=== PATIENT | male | born 1965 | race Caucasian/White ===

== ENCOUNTER → 2016-09-12 | Outpatient (REF) | payer BC | LOC: M LAB REF 16:13 | PROVIDERS: ATTEND Internal Medicine | DX: E78.1 Pure hyperglyceridemia (principal) ==

== ENCOUNTER 2020-09-19 10:36 | Emergency (ER) | payer BC ==
[~2020-09-19] VITALS: Ht 177.8 cm; Wt 90.7 kg
[2020-09-19 10:36] VITALS: BP 127/78
--- OUTSIDE RECORDS SUMMARY | 2020-09-19 10:41 | CCD | Continuity of Care Document ---
Author Author [facility] Vasquez Organization Unknown Address [address] [place] [id number] Phone Unavailable Care Team Providers Care Broach Grinder Name Role Phone Smith Elena JR, MD AUTM Unavailable Problems Description No Information Available Social History Type Date Description Comments Sex Unknown ETOH Use Occasionally consumes alcohol MA LT LIQUOR 2 DRINKS A MONTH Tobacco Use Start: Unknown Patient has never smoked Allergies, Adverse Reactions, Alerts Description No Known Drug Allergies Medications Description No Active Medications Medications Administered in Office Medication SIG Qnty Indications Ordering Provider Date Immunization Adminstration,1 Vaccine/Tox oid Injection Smith Elena MD 2018 Immunizations CPT Code Status Date Vaccine Lot # [id number] Given 08/06/2019 Influenza Vaccin e Quadrivalent Preser/Antibiotic Free Im Use [id number] Vital Signs Date Vital Result Comment 08/07/2020 9:00am BP Systolic 118 mmHg BP Diastolic 76 mmHg Heart Rate 72 /min Height 69.5 inches 5'9.50" Weight 201.00 lb BMI (Body Mass Index) 29.3 kg/m2 08/06/2019 11:43am BP Systolic 122 mmHg BP Diastolic 68 mmHg Heart Rate 78 /min Height 69.5 inches 5'9.50" Weight 208.00 lb BMI (Body Mass Index) 30.3 kg/m2 Results Test Acquired Date Facility Test Result H/L Range Note Complete Blood Count 2020 [facility] Rob[employer] Technician: [place] [address] [phone] WBC 6.9 x10*3/UL 4.1 - 10.9 RBC 5.52 x10*6/UL 4.20 - 6.30 Hemoglobin 15.9 g/dL 12.0 - 18.0 Hematocrit 45.1 % 37.0 - 51.0 MCV 81.7 fL 80.0 - 97.0 MCH 28.8 pg 26.0 - 32.0 MCHC 35.2 g/dL 31.0 - 38.0 RDW 12.7 % 11.6 - 13.7 PLT 291 x10*3/UL 140 - 440 MPV 7.6 FL Low 7.8 - 11.0 Lymph % 32.6 % 10.0 - 58.5 Mid % 7.3 % 1.7 - 9.3 Neut % 60.1 % 37.0 - 92.0 Lymph # 2.2 x10*3/UL 0.6 - 4.1 Mid # 0.6 x10*3/UL 0.1 - 0.6 Neut # 4.1 x10*3/UL 2.0 - 7.8 Comprehensive Chem Profile 2020 [facility], Robotics Technician: [place] [address] [phone] Glucose 82 mg/dL 74 - 99 1 BUN 14 mg/dL 7 - 18 Creatinine 1.4 mg/dL High 0.6 - 1.3 Sodium 144 mEq/L 136 - 145 Potassium 4.5 mEq/L 3.5 - 5.1 Chloride 106 mEq/L 98 - 107 Carbon Dioxide 28 mEq/L 21 - 32 Calcium 8.8 mg/dL 8.5 - 10.1 Alk. Phosphatase 68 mg/dL 46 - 116 Total Bilirubin 0.5 mg/dL 0.2 - 1.0 Ast (Sgot) 20 U/L 15 - 37 Alt (SGPT) 15 U/L 12 - 78 Albumin 4.1 g/dL 3.4 - 5.0 Total Protein 7.5 g/dL 6.4 - 8.2 A/G Ratio 1.21 CALC 1.00 - 1.90 GFR 53 mL/min Low >60 GFR >= 60 mL/min >60 2 Lipid Profile 2020 [facility] , Robotics Technician: [place] [address] [phone] Cholesterol 174 mg/dL 131 - 200 Triglycerides 390 mg/dL High 30 - 150 HDL Cholesterol 38 mg/dL 35 - 60 LDL (Calculated) 58 CALC 50 - 159 Laboratory test finding 2020 [facility] Robotics Technician: Dr Smith Elena [place], [place] [id number] [phone] PSA 0.30 ng/mL <4.00 3 1 100-125 mg/dL PRE-DIABET ES/FASTING >126 mg/dL DIABETES/FASTING 2 CHRONIC KIDNEY DISEASE STAGI NG PER NKF STAGE I & II GFR >= 60 NORMAL TO MILDLY DECREASED STAGE III GFR 30-59 MODERATELY DECREASED STAGE IV GFR 15-29 SEVERELY DECREASED STAGE V GFR <15 VERY LITTLE GFR LEFT ESRD GFR <15 ON INTERVENTION ANALYST 3 This assay was performed on the SERVICEINFINITYL using the B- Galactosidase/CPRG methodology and should not be compared interchangeably with other methods. The PSA should not be used alone as a screening test for the presence or absence of malignant disease. Procedures Description No Information Available Medical Devices Description No Information Available Encounters Description No Information Available Assessments Description No Information Available Plan of Treatment No Information Available Functional Status Description No Information Available Mental Status Description No Information Available Referrals Description No Information Available
--- OUTSIDE RECORDS SUMMARY | 2020-09-19 10:41 | CCD ---
Author Author [facility] Organization [facility] Address Unknown Phone Unavailable Care Team Providers Care Hogshead Head Matcher Name Role Phone Joi Elena MD Unavailable Unavailable Joi Elena MD Unavailable Unavailable Joi Elena MD Unavailable Unavailable Joi Elena MD Unavailable Unavailable Joi Elena MD Unavailable Unavailable Joi Elena MD Unavailable Unavailable Joi Elena MD Unavailable Unavailable Joi Elena MD Unavailable Unavailable Joi Elena MD Unavailable Unavailable Joi Elena MD Unavailable Unavailable Joi Elena MD Unavailable Unavailable Joi Elena MD Unavailable Unavailable Joi Elena MD Unavailable Unavailable Joi Elena MD Unavailable Unavailable Joi Elena MD Unavailable Unavailable Joi Elena MD Unavailable Unavailable Joi Elena MD Unavailable Unavailable Joi Elena MD Unavailable Unavailable Joi Elena MD Unavailable Unavailable Joi Elena MD Unavailable Unavailable Joi Elena MD Unavailable Unavailable Joi Elena MD Unavailable Unavailable Joi Elena MD Unavailable Unavailable Joi Elena MD Unavailable Unavailable Joi Elena MD Unavailable Unavailable Joi Elena MD Unavailable Unavailable Joi Elena MD Unavailable Unavailable Joi Elena MD Unavailable Unavailable Joi Elena MD Unavailable Unavailable Joi Elena MD Unavailable Unavailable Joi Elena MD Unavailable Unavailable Joi Elena MD Unavailable Unavailable Joi Elena MD Unavailable Unavailable Joi Elena MD Unavailable Unavailable Joi Elena MD Unavailable Unavailable Joi Elena MD Unavailable Unavailable Columbia, Joi Mtz MD Unavailable Unavailable Columbia, Joi Mtz MD Unavailable Unavailable Kassy, Joi Mtz MD Unavailable Unavailable Columbia, Joi Mtz MD Unavailable Unavailable Kassy, Joi Mtz MD Unavailable Unavailable Kassy, Joi Mtz MD Unavailable Unavailable Kassy, Joi Mtz MD Unavailable Unavailable Kassy, Joi Mtz MD Unavailable Unavailable KassyJoi MD Unavailable Unavailable KassyJoi MD Unavailable Unavailable ColumbiaJoi MD Unavailable Unavailable ColumbiaJoi MD Unavailable Unavailable Columbia, Joi Mtz MD Unavailable Unavailable Kassy, Joi Mtz MD Unavailable Unavailable Kassy, Joi Mtz MD Unavailable Unavailable KassyJoi MD Unavailable Unavailable Columbia, Joi Mtz MD Unavailable Unavailable KassyJoi MD Unavailable Unavailable ColumbiaJoi MD Unavailable Unavailable ColumbiaJoi MD Unavailable Unavailable ColumbiaJoi MD Unavailable Unavailable KassyJoi MD Unavailable Unavailable ColumbiaJoi MD Unavailable Unavailable KassyJoi MD Unavailable Unavailable ColumbiaJoi MD Unavailable Unavailable ColumbiaJoi MD Unavailable Unavailable KassyJoi MD Unavailable Unavailable KassyJoi MD Unavailable Unavailable KassyJoi MD Unavailable Unavailable KassyJoi MD Unavailable Unavailable ColumbiaJoi MD Unavailable Unavailable KassyJoi MD Unavailable Unavailable ColumbiaJoi MD Unavailable Unavailable KassyJoi MD Unavailable Unavailable ColumbiaJoi MD Unavailable Unavailable ColumbiaJoi MD Unavailable Unavailable ColumbiaJoi MD Unavailable Unavailable KassyJoi MD Unavailable Unavailable KassyJoi MD Unavailable Unavailable KassyJoi MD Unavailable Unavailable ColumbiaJoi MD Unavailable Unavailable KassyJoi MD Unavailable Unavailable ColumbiaJoi MD Unavailable Unavailable ColumbiaJoi MD Unavailable Unavailable KassyJoi MD Unavailable Unavailable ColumbiaJoi MD Unavailable Unavailable ColumbiaJoi MD Unavailable Unavailable ColumbiaJoi MD Unavailable Unavailable ColumbiaJoi MD Unavailable Unavailable KassyJoi MD Unavailable Unavailable Re-disclosure Warning The records that you are about to access may contain information from federally-assisted alcohol or drug abuse programs. If such information is present, then the following federally mandated warning applies: This information has been disclosed to you from records protected by federal confidentiality rules (42 CFR part 2). The federal rules prohibit you from making any further disclosure of this information unless further disclosure is expressly permitted by the written consent of the person to whom it pertains or as otherwise permitted by 42 CFR part 2. A general authorization for the release of medical or other information is NOT sufficient for this purpose. The Federal rules restrict any use of the information to criminally investigate or prosecute any alcohol or drug abuse patient.The records that you are about to access may contain highly sensitive health information, the redisclosure of which is protected by Article 27-F of the [facility] Public Health law. If you continue you may have access to information: Regarding HIV / AIDS; Provided by facilities licensed or operated by the [facility] Office of Mental Health; or Provided by the [facility] Office for People With Developmental Disabilities. If such information is present, then the following [facility] mandated warning applies: This information has been disclosed to you from confidential records which are protected by state law. State law prohibits you from making any further disclosure of this information without the specific written consent of the person to whom it pertains, or as otherwise permitted by law. Any unauthorized further disclosure in violation of state law may result in a fine or care home sentence or both. A general authorization for the release of medical or other information is NOT sufficient authorization for further disc losure. Family History Family Member Name Family Member Gender Family Member Status Date o f Status Description Data Source(s) Unknown Female Problem [facility] ([facility]) Encounters Encounter Providers Location Date Indications Data Source(s ) Outpatient Attender: Smith Clements 10/08/2019 08:00:00 AM EST [facility] ([facility] ) Immunizations Vaccine Date Status Description Data Source(s) Influenza, injectable, MDCK, preservative free, conard valent 08/06/2019 11:23:00 AM EST completed [facility]) Medications Medication Brand Name Start Date Product Form Dose Route Admi nistrative Instructions Pharmacy Instructions Status Indications Reaction Description Data Source(s) Immunization Adminstration,1 Vaccine/Toxoid 08/06/2019 12:00 :00 AM EST completed [facility] ([facility]) Medication administered onsite Insurance Providers Payer name Policy type / Coverage type Policy ID Covered alliance party ID Covered alliance party's relationship to urrutia Policy [place] Plan Information [employer] EMPL[employer]EE PRO[employer] [id number] SP [id number] [employer]CELL[employer] BCBS FEDERAL [id number] SP [id number] Federal BC/BS Commercial [phone] Self [phone] BC BS [place] FEDERAL B [id number] S [id number] BC/BS (Federal) Commercial Self EXCELLUS BCBS FEDERAL [id number] SP [id number] Results ID Date Data Source [id number] 08/12/2020 04:08:00 PM EST [facility] ([facility]) Name Value Range Interpretation Code Description Data Conchita rce(s) Supporting Document(s) Hemoglobin.gastrointestinal [Presence] in Stool by Imm unologic method Laboratory test result [facility] ID Date Data Source [id number] 2020 08:56:00 AM EST [facility] ([facility]) Name Value Range Interpretation Code Description Data Conchita rce(s) Supporting Document(s) Prostate specific Ag [Mass/volume] in Serum or Plasma 0.30 ng/mL [facility] This assay was performed on the Siemens Dimension EXL using the B- Galactosidase/CPRG methodology and should not be compared interchangeably with other methods. The PSA should not be used alone as a screening test for the presence or absence of malignant disease. ID Date Data Source [id number] 2020 08:56:00 AM EST [facility] ([facility]) Name Value Range Interpretation Code Description Data Conchita rce(s) Supporting Document(s) Triglyceride [Mass/volume] in Serum or Plasma 390 mg/dL 30-150 [facility] ([facility]) Cholesterol [Mass/volume] in Serum or Plasma 174 mg/dL 131-200 [facility] ([facility]) Cholesterol in HDL [Mass/volume] in Serum or Plasma 38 mg/dL 35-60 [facility] ([facility]) Cholesterol in LDL [Mass/volume] in Serum or Plasma by calcu lation 58 CALC 50-159 [facility] ([facility]) ID Date Data Source [id number] 2020 08:56:00 AM EST [facility] ([facility]) Name Value Range Interpretation Code Description Data Conchita rce(s) Supporting Document(s) Glucose [Mass/volume] in Serum or Plasma 82 mg/dL 74-99 [facility] ([facility]) 100-125 mg/dL PRE-DIABETES/FASTING >126 mg/dL DIABETES/FASTING Creatinine 1.4 mg/dL 0.6-1.3 [facility] ([facility]) Urea nitrogen [Mass/volume] in Serum or Plasma 14 mg/dL 7-18 [facility] ([facility]) Potassium [Moles/volume] in Serum or Plasma 4.5 meq/L 3.5-5.1 [facility] ([facility]) Sodium [Moles/volume] in Serum or Plasma 144 meq/L 136-145 [facility] ([facility]) Calcium [Mass/volume] in Serum or Plasma 8.8 mg/dL 8.5-10.1 [facility] ([facility]) Carbon dioxide, total [Moles/volume] in Serum or Plasma 28 meq/L 21 -32 [facility] ([facility]) Chloride [Moles/volume] in Serum or Plasma 106 meq/L 98-107 [facility] ([facility]) Alkaline phosphatase isoenzyme [Units/volume] in Serum or Pl asma 68 mg/dL 46-116 [facility] ([facility]) Aspartate aminotransferase [Enzymatic activity/volume] in Serum or Plasma 20 U/L 15-37 [facility] ([facility] ) Total Bilirubin 0.5 mg/dL 0.2-1.0 [facility] ([facility]) Albumin [Mass/volume] in Serum or Plasma 4.1 g/dL 3.4-5.0 [facility] ([facility]) Alanine aminotransferase [Enzymatic activity/volume] in Seru m or Plasma 15 U/L 12-78 [facility] ([facility]) A/G Ratio 1.21 CALC 1.00-1.90 [facility]) Proteinase 3 Ab [Units/volume] in Serum 7.5 g/dL 6.4-8.2 [facility] ([facility]) Glomerular filtration rate/1.73 sq M pre dicted among blacks [Volume Rate/Area] in Serum or Plasma by Creatinine-based formula (MDRD) Laboratory test result [facility] ([facility]) <content>CHRONIC KIDNEY DISEASE STAGING PER NKF</content>
<content></content>
<content>STAGE I & II GFR >= 60 NORMAL TO MILDLY DECREASED</content>
<content>STAGE III GFR 30-59 MODERATELY DECREASED</content>
<content>STAGE IV GFR 15-29 SEVERELY DECREASED</content>
<content>STAGE V GFR <15 VERY LITTLE GFR LEFT</content>
<content>ESRD GFR <15 ON SUPERINTENDENT RECREATION</content>
<content></content> Glomerular filtration rate/1.73 sq M pre dicted among non-blacks [Volume Rate/Area] in Serum or Plasma by Creatinine-based formula (MDRD) 53 mL/min [facility] ([facility]) ID Date Data Source [id number] 2020 08:56:00 AM EST [facility] ([facility]) Name Value Range Interpretation Code Description Data Conchita rce(s) Supporting Document(s) Leukocytes [#/volume] in Blood by Automated count 6.9 x10*3/UL 4.1-10 .9 [facility] ([facility]) Erythrocytes [#/volume] in Blood by Automated count 5.52 x10*6/UL 4.2 0-6.30 [facility] ([facility]) Hemoglobin [Mass/volume] in Blood 15.9 g/dL 12.0-18.0 [facility]) Hematocrit [Volume Fraction] of Blood by Automated count 45.1 % 3 7.0-51.0 [facility] ([facility]) MCV 81.7 fL 80.0-97.0 [facility] ([facility]) Erythrocyte distribution width [Ratio] by Automated count 12.7 % 11.6-13.7 [facility] ([facility]) MCHC 35.2 g/dL 31.0-38.0 [facility] ([facility]) MCH 28.8 pg 26.0-32.0 [facility] Lymph % 32.6 % 10.0-58.5 [facility]) Platelets [#/volume] in Blood by Automated count 291 x10*3/UL 140-440 [facility] ([facility]) MPV 7.6 FL 7.8-11.0 [facility]) Mid % 7.3 % 1.7-9.3 [facility]) Lymph # 2.2 x10*3/UL 0.6-4.1 [facility] ([facility]) Neut % 60.1 % 37.0-92.0 [facility]) Mid # 0.6 x10*3/UL 0.1-0.6 [facility] ([facility]) Neut # 4.1 x10*3/UL 2.0-7.8 [facility] ([facility]) ID Date Data Source [id number] 07/30/2019 07:37:00 AM EST [facility] ([facility] Name Value Range Interpretation Code Description Data Conchita rce(s) Supporting Document(s) Prostate specific Ag [Mass/volume] in Serum or Plasma 0.35 ng/mL [facility] ([facility]) This assay was performed on the Siemens Dimension EXL using the B- Galactosidase/CPRG methodology and should not be compared interchangeably with other methods. The PSA should not be used alone as a screening test for the presence or absence of malignant disease. ID Date Data Source [id number] 07/30/2019 07:36:00 AM EST [facility] ([facility] Name Value Range Interpretation Code Description Data Conchita rce(s) Supporting Document(s) Cholesterol [Mass/volume] in Serum or Plasma 173 mg/dL 131-200 [facility] ([facility]) Triglyceride [Mass/volume] in Serum or Plasma 252 mg/dL 30-150 [facility] ([facility]) Cholesterol in HDL [Mass/volume] in Serum or Plasma 38 mg/dL 35-60 [facility] ([facility]) Cholesterol in LDL [Mass/volume] in Serum or Plasma by calcu lation 85 CALC 50-159 [facility] ([facility]) ID Date Data Source [id number] 07/30/2019 07:36:00 AM EST [facility] ([facility]) Name Value Range Interpretation Code Description Data Conchita rce(s) Supporting Document(s) Glucose [Mass/volume] in Serum or Plasma 85 mg/dL 74-99 [facility] ([facility]) 100-125 mg/dL PRE-DIABETES/FASTING >126 mg/dL DIABETES/FASTING Urea nitrogen [Mass/volume] in Serum or Plasma 17 mg/dL 7-18 [facility] ([facility]) Creatinine 1.4 mg/dL 0.6-1.3 [facility] Sodium [Moles/volume] in Serum or Plasma 142 meq/L 136-145 [facility] ([facility]) Potassium [Moles/volume] in Serum or Plasma 4.1 meq/L 3.5-5.1 [facility] ([facility]) Chloride [Moles/volume] in Serum or Plasma 103 meq/L 98-107 [facility] ([facility]) Calcium [Mass/volume] in Serum or Plasma 9.0 mg/dL 8.5-10.1 [facility] ([facility]) Carbon dioxide, total [Moles/volume] in Serum or Plasma 30 meq/L 21 -32 [facility] ([facility]) Total Bilirubin 0.7 mg/dL 0.2-1.0 [facility] ([facility]) Alkaline phosphatase isoenzyme [Units/volume] in Serum or Pl asma 62 mg/dL 46-116 [facility] ([facility]) Alanine aminotransferase [Enzymatic activity/volume] in Seru m or Plasma 26 U/L 12-78 [facility] ([facility]) Aspartate aminotransferase [Enzymatic activity/volume] in Serum or Plasma 26 U/L 15-37 [facility] ([facility] ) Proteinase 3 Ab [Units/volume] in Serum 7.8 g/dL 6.4-8.2 [facility] ([facility]) Albumin [Mass/volume] in Serum or Plasma 4.2 g/dL 3.4-5.0 [facility] ([facility]) Glomerular filtration rate/1.73 sq M pre dicted among non-blacks [Volume Rate/Area] in Serum or Plasma by Creatinine-based formula (MDRD) 53 mL/min [facility] ([facility]) A/G Ratio 1.17 CALC 1.00-1.90 [facility] ([facility]) Glomerular filtration rate/1.73 sq M pre dicted among blacks [Volume Rate/Area] in Serum or Plasma by Creatinine-based formula (MDRD) >= 60 mL/min [facility] ([facility]) <content>CHRONIC KIDNEY DISEASE STAGING PER NKF</content>
<content></content>
<content>STAGE I & II GFR >= 60 NORMAL TO MILDLY DECREASED</content>
<content>STAGE III GFR 30-59 MODERATELY DECREASED</content>
<content>STAGE IV GFR 15-29 SEVERELY DECREASED</content>
<content>STAGE V GFR <15 VERY LITTLE GFR LEFT</content>
<content>ESRD GFR <15 ON SUPERINTENDENT RECREATION</content>
<content></content> ID Date Data Source [id number] 07/30/2019 07:36:00 AM EST [facility] ([facility]) Name Value Range Interpretation Code Description Data Conchita rce(s) Supporting Document(s) Leukocytes [#/volume] in Blood by Automated count 6.9 x10*3/UL 4.1-10 .9 [facility] ([facility] Erythrocytes [#/volume] in Blood by Automated count 5.57 x10*6/UL 4.2 0-6.30 [facility] ([facility]) Hemoglobin [Mass/volume] in Blood 16.0 g/dL 12.0-18.0 [facility] ([facility]) MCV 84.6 fL 80.0-97.0 [facility] ([facility]) Hematocrit [Volume Fraction] of Blood by Automated count 47.2 % 3 7.0-51.0 [facility] ([facility] MCH 28.8 pg 26.0-32.0 [facility] ([facility]) MCHC 34.0 g/dL 31.0-38.0 [facility] ([facility]) Erythrocyte distribution width [Ratio] by Automated count 12.9 % 11.6-13.7 [facility] ([facility]) Platelets [#/volume] in Blood by Automated count 219 x10*3/UL 140-440 [facility] ([facility]) MPV 8.3 FL 7.8-11.0 [facility]) Lymph % 27.4 % 10.0-58.5 [facility]) Mid % 7.3 % 1.7-9.3 [facility]) Lymph # 1.9 x10*3/UL 0.6-4.1 [facility] ([facility]) Neut % 65.3 % 37.0-92.0 [facility] Mid # 0.5 x10*3/UL 0.1-0.6 [facility] ([facility]) Neut # 4.5 x10*3/UL 2.0-7.8 [facility] ([facility]) Procedure Vital Signs ID Date Data Source UNK Name Value Range Interpretation Code Description Data Source(s) Body mass index (BMI) [Ratio] 29.3 kg/m2 29.3 k g/m2 [facility] ([facility]) Body weight 201.00 [lb_av] 201.00 [lb_av] [employer] ([facility]) Body height 69.5 [in_i] 69.5 [in_i] [facility] ([facility]) 5'9.50" Heart rate 72 /min 72 /min [facility] ([facility]) Diastolic blood pressure 76 mm[Hg] 76 mm[Hg] [facility] ([facility]) Systolic blood pressure 118 mm[Hg] 118 mm[Hg] [facility] ([facility]) Body mass index (BMI) [Ratio] 30.3 kg/m2 30.3 k g/m2 [facility] ([facility]) Body weight 208.00 [lb_av] 208.00 [lb_av] [employer] ([facility]) Body height 69.5 [in_i] 69.5 [in_i] [facility] ([facility]) 5'9.50" Heart rate 78 /min 78 /min [facility] ([facility]) Diastolic blood pressure 68 mm[Hg] 68 mm[Hg] [facility] ([facility]) Systolic blood pressure 122 mm[Hg] 122 mm[Hg] [facility] WHARTON ([facility])
--- OUTSIDE RECORDS SUMMARY | 2020-09-19 10:41 | CCD | Continuity of Care Document ---
Author Author Geoff Woodward Organization Unknown Address [address] [place] [phone] Phone Unavailable Care Team Providers Care Pewter Fabricator Name Role Phone Smith Elena JR, MD [...] CPT Code Status Date Vaccine Lot # [id number] Given 08/06/2019 Influenza Vaccin e Quadrivalent Preser/Antibiotic Free Im Use [id number] Vital Signs Date Vital Result Comment 08/06/2019 11:43am BP Systolic 122 mmHg BP Diastolic 68 mmHg Heart Rate 78 /min Height 69.5 inches 5'9.50" Weight 208.00 lb BMI (Body Mass Index) 30.3 kg/m2 01/08/2018 1:05pm BP Systolic 122 mmHg BP Diastolic 64 mmHg Heart Rate 62 /min Height 69.5 inches 5'9.50" Weight 200.00 lb BMI (Body Mass Index) 29.1 kg/m2 Results Test Acquired Date Facility Test Result H/L Range Note Laboratory test finding 2020 [facility] javier, laurel Fabric Designer: [place] [address] [phone] PSA <pending> Procedures Description No Information Available Medical Devices Description No Information Available Encounters Description No Information Available Assessments Description No Information Available Plan of Treatment Future Appointment(s):* 08/07/2020 9:00 am - Smith Elena MD at [facility] 08/06/2019 - Smith Elena MD* Z00.00 Encounter for general adult medical examination without abnormal findings * E78.1 Pure hyperglyceridemia * E66.09 Other obesity due to excess calories * Z68.30 Body mass index (BMI) 30.0-30.9, adult * Z23 Encounter for immunization * Z13.89 Encounter for screening for other disorder * All * New Medication:* No Active Medications - * Comments:* Flu shot given. The importance of colonoscopy discussed and refer for colonoscopy Functional Status Description No Information Available Mental Status Description No Information Available Referrals Description No Information Available
--- OUTSIDE RECORDS SUMMARY | 2020-09-19 10:41 | CCD | Continuity of Care Document ---
Author Author Geoff Elena MD Organization Unknown Address [address] [address] Phone [phone] Care Team Providers Care Practice Or Student Teacher Name Role Phone Smith Elena JR, MD [...] CPT Code Status Date Vaccine Lot # [id number] Given 08/06/2019 Influenza Vaccin e Quadrivalent Preser/Antibiotic Free Im Use [id number] Vital Signs Date Vital Result Comment 08/07/2020 [...] H/L Range Note Complete Blood Count 2020 [place] Hand Ironer slaurel Pin Machine Tender: [place] [address] [phone] WBC 6.9 x10*3/UL 4.1 - 10.9 RBC [...] 2.0 - 7.8 Comprehensive Chem Profile 2020 [facility], Pin Machine Tender: [place] [address] [phone] Glucose 82 mg/dL 74 - 99 1 [...] 60 mL/min >60 2 Lipid Profile 2020 [facility] , Pin Machine Tender: [place] [address] [phone] Cholesterol 174 mg/dL 131 - 200 Triglycerides 390 mg/dL High 30 - 150 HDL Cholesterol 38 mg/dL 35 - 60 LDL (Calculated) 58 CALC 50 - 159 Laboratory test finding 2020 [place] [employer]gronomy Research Manager laurel herrera Pin Machine Tender: Dr Smith Elena [place], [place] [id number] [phone] PSA 0.30 ng/mL <4.00 3 1 100-125 mg/dL PRE-DIABET ES/FASTING >126 mg/dL DIABETES/FASTING 2 CHRONIC KIDNEY DISEASE STAGI NG PER NKF STAGE I & II GFR >= 60 NORMAL TO MILDLY DECREASED STAGE III GFR 30-59 MODERATELY DECREASED STAGE IV GFR 15-29 SEVERELY DECREASED STAGE V GFR <15 VERY LITTLE GFR LEFT ESRD GFR <15 ON PUG MILL OPERATOR HELPER 3 This assay was performed on the Siemens [...]
--- OUTSIDE RECORDS SUMMARY | 2020-09-19 10:41 | CCD | Continuity of Care Document ---
Author Author Lab Geoff Vasquez Organization Unknown Address [address] [place] [phone] Phone Unavailable Care Team Providers Care Senior Interactive Producer Name Role Phone Smith Elena JR, MD [...] CPT Code Status Date Vaccine Lot # [id number] Given 08/06/2019 Influenza Vaccin e Quadrivalent Preser/Antibiotic Free Im Use [id number] Vital Signs Date Vital Result Comment 08/07/2020 [...] H/L Range Note Complete Blood Count 2020 [place] Guest Request Runner slaurel Brim Ironer Hand: [place] [address] [phone] WBC 6.9 x10*3/UL 4.1 - 10.9 RBC [...] 2.0 - 7.8 Comprehensive Chem Profile 2020 [facility], Brim Ironer Hand: [place] [address] [phone] Glucose 82 mg/dL 74 - 99 1 [...] 60 mL/min >60 2 Lipid Profile 2020 [facility] , Brim Ironer Hand: [place] [address] [phone] Cholesterol 174 mg/dL 131 - 200 Triglycerides 390 mg/dL High 30 - 150 HDL Cholesterol 38 mg/dL 35 - 60 LDL (Calculated) 58 CALC 50 - 159 Laboratory test finding 2020 [facility] Brim Ironer Hand: Dr Smith Elena [place], [place] [id number] [phone] PSA 0.30 ng/mL <4.00 3 1 100-125 mg/dL PRE-DIABET ES/FASTING >126 mg/dL DIABETES/FASTING 2 CHRONIC KIDNEY DISEASE STAGI NG PER NKF STAGE I & II GFR >= 60 NORMAL TO MILDLY DECREASED STAGE III GFR 30-59 MODERATELY DECREASED STAGE IV GFR 15-29 SEVERELY DECREASED STAGE V GFR <15 VERY LITTLE GFR LEFT ESRD GFR <15 ON VOICE STUDIES DIRECTOR 3 This assay was performed on the [employer]L using the B- Galactosidase/CPRG methodology and should not be compared interchangeably with other methods. The PSA should not be used alone as a screening test for the presence or absence of malignant disease. Procedures Description No Information Available Medical Devices Description No Information Available Encounters Description No Information Available Assessments Date Code Description Provider 08/07/2020 Z00.00 Encounter for genera l adult medical examination without abnormal findings Smith Elena MD 08/07/2020 E78.2 Mixed hyperlipidemia Smith Elena MD 08/07/2020 E66.3 Overweight Smith arriaza MD 08/07/2020 Z68.29 Body mass index [BMI] 29.0-29.9, adult Smith Elena MD 2020 Z00.00 Encounter for genera l adult medical examination without abnormal findings Jeferson Randall M.D. 2020 Z00.00 Encounter for genera l adult medical examination without abnormal findings Lab Schedule 2020 Z12.5 Encounter for screening for tom gnant neoplasm of prostate Jeferson Randall M.D. 2020 Z12.5 Encounter for screening for tom gnant neoplasm of prostate Lab Schedule 2020 E78.1 Pure hyperglyceridemia Jeferson Randall M.D. 2020 E78.1 Pure hyperglyceridemia Lab Sched ule Plan of Treatment Future Appointment(s):* 08/04/2021 7:50 am - Lab Schedule at [facility] * 08/09/2021 8:20 am - Smith Elena MD at [facility] 08/07/2020 - Smith Elena MD* Z00.00 Encounter for general adult medical examination without abnormal findings * E78.2 Mixed hyperlipidemia* Comments:* LDL at goal. * E66.3 Overweight * Z68.29 Body mass index [BMI] 29.0-29.9, adult * All * Comments:* FIT test to be done. Wants to hold off on Colonoscopy until COVID is over. Functional Status Description No Information Available Mental Status Description No Information Available Referrals Description No Information Available
--- OUTSIDE RECORDS SUMMARY | 2020-09-19 10:41 | CCD | Continuity of Care Document ---
Author Author Geoff Elena MD Organization Unknown Address [address] [address] Phone [phone] Care Team Providers Care Milk Collector Name Role Phone Smith Elena JR, MD [...] CPT Code Status Date Vaccine Lot # [id number] Given 08/06/2019 Influenza Vaccin e Quadrivalent Preser/Antibiotic Free Im Use [id number] Vital Signs Date Vital Result Comment 08/07/2020 [...] Result H/L Range Note Laboratory test finding 08/12/2020 [facility] [employer] Dough Mixer laurel herrera Otr Company Truck Driver: Dr Smith Elena [place], [place] [id number] [phone] Fecal Immunochemical Test NEGATIVE Negati ve Complete Blood Count 2020 [facility] Otr Company Truck Driver: [place] [address] [phone] WBC 6.9 x10*3/UL 4.1 - 10.9 RBC [...] 2.0 - 7.8 Comprehensive Chem Profile 2020 [facility] Otr Company Truck Driver: [place] [address] [phone] Glucose 82 mg/dL 74 - 99 1 [...] 60 mL/min >60 2 Lipid Profile 2020 [facility] Otr Company Truck Driver: [place] [address] [phone] Cholesterol 174 mg/dL 131 - 200 Triglycerides 390 mg/dL High 30 - 150 HDL Cholesterol 38 mg/dL 35 - 60 LDL (Calculated) 58 CALC 50 - 159 Laboratory test finding 2020 [facility] [employer] Dough Mixer laurel herrera [employer] Truck Driver: [place] [address] [phone] PSA 0.30 ng/mL <4.00 3 1 100-125 mg/dL PRE-DIABET ES/FASTING >126 mg/dL DIABETES/FASTING 2 CHRONIC KIDNEY DISEASE STAGI NG PER NKF STAGE I & II GFR >= 60 NORMAL TO MILDLY DECREASED STAGE III GFR 30-59 MODERATELY DECREASED STAGE IV GFR 15-29 SEVERELY DECREASED STAGE V GFR <15 VERY LITTLE GFR LEFT ESRD GFR <15 ON CORRESPONDENCE CLERK 3 This assay was performed on the [employer] EXL using the B- Galactosidase/CPRG methodology and should not be compared interchangeably with other methods. The PSA should not be used alone as a screening test for the presence or absence of malignant disease. Procedures Description No Information Available Medical Devices Description No Information Available Encounters Type Date Location Provider Dx Diagnosis Office Visit 08/07/2020 9:00a [facility] Smith Elena MD Z00.00 Encntr for general adult medical exam w/ o abnormal findings E78.2 Mixed hyperlipidemia E66.3 Overweight Z13.89 Encounter for screening for other disorder Z68.29 Body mass index [BMI] 29.0-2 9.9, adult Assessments Date Code Description Provider 08/07/2020 Z00.00 Encounter for genera l adult medical examination without abnormal findings Smtih Elena MD 08/07/2020 E78.2 Mixed hyperlipidemia Smith Elena MD 08/07/2020 E66.3 Overweight Smith arriaza MD 08/07/2020 Z13.89 Encounter for screening for othe r disorder Smith Elena MD 08/07/2020 Z68.29 Body mass index [BMI] [...] 08/04/2021 7:50 am - Lab Schedule at [facility] * 08/09/2021 8:20 am - Smith Elena MD at [facility] 08/07/2020 - Smith Elena MD* Z00.00 Encounter for general adult medical examination without abnormal findings * E78.2 Mixed hyperlipidemia* Comments:* LDL at goal. * E66.3 Overweight * Z13.89 Encounter for screening for other disorder * Z68.29 Body mass index [BMI] 29.0-29.9, adult * All * Comments:* FIT test to be done. Wants to hold off on Colonoscopy until COVID is over. Functional Status Description No Information Available Mental Status Description No Information Available Referrals Description No Information Available
--- OUTSIDE RECORDS SUMMARY | 2020-09-19 10:41 | CCD | Continuity of Care Document ---
Author Author Geoff Woodward Organization Unknown Address [address] [place] [phone] Phone Unavailable Care Team Providers Care Tobacco Classer Name Role Phone Smith Elena JR, MD [...] CPT Code Status Date Vaccine Lot # [id number] Given 08/06/2019 Influenza Vaccin e Quadrivalent Preser/Antibiotic Free Im Use [id number] Vital Signs Date Vital Result Comment 08/07/2020 [...] H/L Range Note Laboratory test finding 08/12/2020 [employer] Community Relations Coordinator laurel herrera Racing Secretary And Handicapper: [place] [address] [phone] Fecal Immunochemical Test NEGATIVE Negati ve Complete Blood Count 2020 [facility] [employer] [facility] Racing Secretary And Handicapper: [place] [address] [phone] WBC 6.9 x10*3/UL 4.1 - 10.9 RBC [...] 2.0 - 7.8 Comprehensive Chem Profile 2020 [facility], Racing Secretary And Handicapper: [place] [address] [phone] Glucose 82 mg/dL 74 - 99 1 [...] 60 mL/min >60 2 Lipid Profile 2020 [facility] , Racing Secretary And Handicapper: [place] [address] [phone] Cholesterol 174 mg/dL 131 - 200 Triglycerides 390 mg/dL High 30 - 150 HDL Cholesterol 38 mg/dL 35 - 60 LDL (Calculated) 58 CALC 50 - 159 Laboratory test finding 2020 [employer] Community Relations Coordinator laurel herrera Racing Secretary And Handicapper: Dr Smith Elena [place], [place] [id number] [phone] PSA 0.30 ng/mL <4.00 3 1 100-125 mg/dL PRE-DIABET ES/FASTING >126 mg/dL DIABETES/FASTING 2 CHRONIC KIDNEY DISEASE STAGI NG PER NKF STAGE I & II GFR >= 60 NORMAL TO MILDLY DECREASED STAGE III GFR 30-59 MODERATELY DECREASED STAGE IV GFR 15-29 SEVERELY DECREASED STAGE V GFR <15 VERY LITTLE GFR LEFT ESRD GFR <15 ON ANIMAL CARE WORKER 3 This assay was performed on the [employer] EXL using the B- Galactosidase/CPRG methodology and should not be compared interchangeably with other methods. The PSA should not be used alone as a screening test for the presence or absence of malignant disease. Procedures Description No Information Available Medical Devices Description No Information Available Encounters Type Date Location Provider Dx Diagnosis Office Visit 08/07/2020 9:00a [facility] Smith Elena MD Z00.00 Encntr for general adult medical exam w/ o abnormal findings E78.2 Mixed hyperlipidemia E66.3 Overweight Z13.89 Encounter for screening for other disorder Z68.29 Body mass index [BMI] 29.0-2 9.9, adult Assessments Date Code Description Provider 08/12/2020 Z12.12 Encounter for screening for tom gnant neoplasm of rectum Smith Elena MD 08/12/2020 Z12.12 Encounter for screening for tom gnant neoplasm of rectum Lab Schedule 08/07/2020 Z00.00 Encounter for genera l adult [...] 08/04/2021 7:50 am - Lab Schedule at [facility] * 08/09/2021 8:20 am - Smith Elena MD at [facility] 08/07/2020 - Smith Elena MD* [...]
--- OUTSIDE RECORDS SUMMARY | 2020-09-19 10:41 | CCD | Continuity of Care Document ---
Author Author Lab Geoff Vasquez Organization Unknown Address [address] [place] [phone] Phone Unavailable Care Team Providers Care Antisqueak Worker Name Role Phone Smith Elena JR, MD [...] CPT Code Status Date Vaccine Lot # [id number] Given 08/06/2019 Influenza Vaccin e Quadrivalent Preser/Antibiotic Free Im Use [id number] Vital Signs Date Vital Result Comment 08/07/2020 [...] H/L Range Note Complete Blood Count 2020 [facility] [employer] Instructor slaurel Recreation Therapist: [place] [address] [phone] WBC 6.9 x10*3/UL 4.1 - 10.9 RBC [...] 2.0 - 7.8 Comprehensive Chem Profile 2020 [facility], Recreation Therapist: [place] [address] [phone] Glucose 82 mg/dL 74 - 99 1 [...] 60 mL/min >60 2 Lipid Profile 2020 [facility] , Recreation Therapist: [place] [address] [phone] Cholesterol 174 mg/dL 131 - 200 Triglycerides 390 mg/dL High 30 - 150 HDL Cholesterol 38 mg/dL 35 - 60 LDL (Calculated) 58 CALC 50 - 159 Laboratory test finding 2020 [facility] Recreation Therapist: Dr Smith Elena [place], [place] [id number] [phone] PSA 0.30 ng/mL <4.00 3 1 100-125 mg/dL PRE-DIABET ES/FASTING >126 mg/dL DIABETES/FASTING 2 CHRONIC KIDNEY DISEASE STAGI NG PER NKF STAGE I & II GFR >= 60 NORMAL TO MILDLY DECREASED STAGE III GFR 30-59 MODERATELY DECREASED STAGE IV GFR 15-29 SEVERELY DECREASED STAGE V GFR <15 VERY LITTLE GFR LEFT ESRD GFR <15 ON COMPUTER PROGRAMMER 3 This assay was performed on the [employer] using the B- Galactosidase/CPRG methodology and should [...] 08/04/2021 7:50 am - Lab Schedule at [facility] * 08/09/2021 8:20 am - Smith Elena MD at [facility] 08/07/2020 - Smith Elena MD* [...]
--- OUTSIDE RECORDS SUMMARY | 2020-09-19 11:12 | CCD ---
Author Author [facility] Organization [facility] Address Unknown Phone Unavailable Care Team Providers Care Nurse Prn Name Role Phone Joi Elena MD Unavailable [...] Unavailable Unavailable Joi Elena MD Unavailable Unavailable KassyJoi MD Unavailable Unavailable HuntingtonJoi MD Unavailable Unavailable HuntingtonJoi MD Unavailable Unavailable KassyJoi MD Unavailable Unavailable KassyJoi MD Unavailable Unavailable HuntingtonJoi MD Unavailable Unavailable HuntingtonJoi MD Unavailable Unavailable KassyJoi MD Unavailable Unavailable KsasyJoi MD Unavailable Unavailable KassyJoi MD Unavailable Unavailable HuntingtonJoi MD Unavailable Unavailable HuntingtonJoi MD Unavailable Unavailable KassyJoi MD Unavailable Unavailable HuntingtonJoi MD Unavailable Unavailable KassyJoi MD Unavailable Unavailable HuntingtonJoi MD Unavailable Unavailable KassyJoi MD Unavailable Unavailable HuntingtonJoi MD Unavailable Unavailable KassyJoi MD Unavailable Unavailable KassyJoi MD Unavailable Unavailable KassyJoi MD Unavailable Unavailable HuntingtonJoi MD Unavailable Unavailable KassyJoi MD Unavailable Unavailable KassyJoi MD Unavailable Unavailable HuntingtonJoi jordan MD Unavailable Unavailable KassyJoi MD Unavailable Unavailable KassyJoi jordan MD Unavailable Unavailable KassyJoi jordan MD Unavailable Unavailable HuntingtonJoi jordan MD Unavailable Unavailable HuntingtonJoi MD Unavailable Unavailable HuntingtonJoi MD Unavailable Unavailable KassyJoi jordan MD Unavailable Unavailable KassyJoi MD Unavailable Unavailable HuntingtonJoi jordan MD Unavailable Unavailable KassyJoi jordan MD Unavailable Unavailable HuntingtonJoi jordan MD Unavailable Unavailable HuntingtonJoi jordan MD Unavailable Unavailable KassyJoi jordan MD Unavailable Unavailable KassyJoi jordan MD Unavailable Unavailable HuntingtonJoi jordan MD Unavailable Unavailable KassyJoi jordan MD Unavailable Unavailable HuntingtonJoi jordan MD Unavailable Unavailable KassyJoi jordan MD Unavailable Unavailable HuntingtonJoi jordan MD Unavailable Unavailable HuntingtonJoi MD Unavailable Unavailable HuntingtonJoi MD Unavailable Unavailable KassyJoi MD Unavailable Unavailable HuntingtonJoi MD Unavailable Unavailable KassyJoi MD Unavailable Unavailable HuntingtonJoi MD Unavailable Unavailable HuntingtonJoi jordan MD Unavailable Unavailable KassyJoi jordan MD Unavailable Unavailable HuntingtonJoi MD Unavailable Unavailable Re-disclosure Warning The records [...] is protected by Article 27-F of the [facility] Public Health law. If you continue you may have access to information: Regarding HIV / AIDS; Provided by facilities licensed or operated by the [facility] Office of Mental Health; or Provided by the [facility] Office for People With Developmental Disabilities. If such information is present, then the following [facility] mandated warning applies: This information has [...] law may result in a fine or senior care sentence or both. A general authorization for [...] Smith Clements 10/08/2019 08:00:00 AM EST [facility] ([facility] ) Immunizations Vaccine Date Status Description Data Source(s) Influenza, injectable, MDCK, preservative free, conrad valent 08/06/2019 11:23:00 AM EST completed [facility]) Medications Medication Brand Name Start Date Product Form Dose Route Admi nistrative Instructions Pharmacy Instructions Status Indications Reaction Description Data Source(s) Immunization Adminstration,1 Vaccine/Toxoid 08/06/2019 12:00 :00 AM EST completed [facility] ([facility]) Medication administered onsite Insurance Providers Payer name Policy type / Coverage type Policy ID Covered constitution party ID Covered constitution party's relationship to urrutia Policy Urrutia Plan Information [facility] EMPLOYEE PROGRAM [id number] SP [id number] [facility] [id number] SP [id number] [facility] BC/BS Commercial [phone] Self [phone] BC BS [place] [employer] B [id number] S [id number] BC/BS ([facility]) Commercial Self [employer] [id number] SP [id number] Results ID Date Data Source [id number] 08/12/2020 04:08:00 PM EST [facility] ([facility]) Name Value Range Interpretation Code Description Data Conchita rce(s) Supporting Document(s) Hemoglobin.gastrointestinal [Presence] in Stool by Imm unologic method Laboratory test result [facility] ([facility] ) ID Date Data Source [id number] 2020 08:56:00 AM EST [facility] ([facility]) Name Value Range Interpretation Code Description Data Conchita rce(s) Supporting Document(s) Prostate specific Ag [Mass/volume] in Serum or Plasma 0.30 ng/mL [facility] ([facility]) This assay was performed on the Siemens Dimension EXL using the B- Galactosidase/CPRG methodology and should not be compared interchangeably with other methods. The PSA should not be used alone as a screening test for the presence or absence of malignant disease. ID Date Data Source [id number] 2020 08:56:00 AM EST [facility] ([facility]) Name Value Range Interpretation Code Description Data Conchita rce(s) Supporting Document(s) Triglyceride [Mass/volume] in Serum or Plasma 390 mg/dL 30-150 [facility] ([facility]) Cholesterol [Mass/volume] in Serum or Plasma 174 mg/dL 131-200 [facility] ([facility]) Cholesterol in HDL [Mass/volume] in Serum or Plasma 38 mg/dL 35-60 [facility] ([facility]) Cholesterol in LDL [Mass/volume] in Serum or Plasma by calcu lation 58 CALC 50-159 [facility] ([facility]) ID Date Data Source [id number] 2020 08:56:00 AM EST [facility] ([facility]) Name Value Range Interpretation Code Description Data Conchita rce(s) Supporting Document(s) Glucose [Mass/volume] in Serum or Plasma 82 mg/dL 74-99 [facility] ([facility]) 100-125 mg/dL PRE-DIABETES/FASTING >126 mg/dL DIABETES/FASTING Creatinine 1.4 mg/dL 0.6-1.3 [facility] ([facility]) Urea nitrogen [Mass/volume] in Serum or Plasma 14 mg/dL 7-18 [facility] ([facility]) Potassium [Moles/volume] in Serum or Plasma 4.5 meq/L 3.5-5.1 [facility] ([facility]) Sodium [Moles/volume] in Serum or Plasma 144 meq/L 136-145 [facility] ([facility]) Calcium [Mass/volume] in Serum or Plasma 8.8 mg/dL 8.5-10.1 [facility] ([facility]) Carbon dioxide, total [Moles/volume] in Serum or Plasma 28 meq/L 21 -32 [facility] ([facility]) Chloride [Moles/volume] in Serum or Plasma 106 meq/L 98-107 [facility] ([facility]) Alkaline phosphatase isoenzyme [Units/volume] in Serum or Pl asma 68 mg/dL 46-116 [facility] ([facility]) Aspartate aminotransferase [Enzymatic activity/volume] in Serum or Plasma 20 U/L 15-37 [facility] ([facility] ) Total Bilirubin 0.5 mg/dL 0.2-1.0 [facility] ([facility]) Albumin [Mass/volume] in Serum or Plasma 4.1 g/dL 3.4-5.0 [facility] ([facility]) Alanine aminotransferase [Enzymatic activity/volume] in Seru m or Plasma 15 U/L 12-78 [facility] ([facility]) A/G Ratio 1.21 CALC 1.00-1.90 [facility]) Proteinase 3 Ab [Units/volume] in Serum 7.5 g/dL 6.4-8.2 [facility] Glomerular filtration rate/1.73 sq M pre dicted among blacks [Volume Rate/Area] in Serum or Plasma by Creatinine-based formula (MDRD) Laboratory test result [facility]) <content>CHRONIC KIDNEY DISEASE STAGING PER NKF</content>
<content></content>
<content>STAGE I & II GFR >= 60 NORMAL TO MILDLY DECREASED</content>
<content>STAGE III GFR 30-59 MODERATELY DECREASED</content>
<content>STAGE IV GFR 15-29 SEVERELY DECREASED</content>
<content>STAGE V GFR <15 VERY LITTLE GFR LEFT</content>
<content>ESRD GFR <15 ON FUR SORTER</content>
<content></content> Glomerular filtration rate/1.73 sq M pre dicted among non-blacks [Volume Rate/Area] in Serum or Plasma by Creatinine-based formula (MDRD) 53 mL/min [facility]) ID Date Data Source [id number] 2020 08:56:00 AM EST [facility] ([facility]) Name Value Range Interpretation Code Description Data Conchita rce(s) Supporting Document(s) Leukocytes [#/volume] in Blood by Automated count 6.9 x10*3/UL 4.1-10 .9 [facility] Erythrocytes [#/volume] in Blood by Automated count 5.52 x10*6/UL 4.2 0-6.30 [facility] ([facility]) Hemoglobin [Mass/volume] in Blood 15.9 g/dL 12.0-18.0 [facility] Hematocrit [Volume Fraction] of Blood by Automated count 45.1 % 3 7.0-51.0 [facility] ([facility]) MCV 81.7 fL 80.0-97.0 [facility] ([facility]) Erythrocyte distribution width [Ratio] by Automated count 12.7 % 11.6-13.7 [facility] ([facility]) MCHC 35.2 g/dL 31.0-38.0 [facility] ([facility]) MCH 28.8 pg 26.0-32.0 [facility]) Lymph % 32.6 % 10.0-58.5 [facility]) Platelets [#/volume] in Blood by Automated count 291 x10*3/UL 140-440 [facility] ([facility]) MPV 7.6 FL 7.8-11.0 [facility]) Mid % 7.3 % 1.7-9.3 [facility]) Lymph # 2.2 x10*3/UL 0.6-4.1 [facility] ([facility]) Neut % 60.1 % 37.0-92.0 [facility] Mid # 0.6 x10*3/UL 0.1-0.6 [facility] ([facility]) Neut # 4.1 x10*3/UL 2.0-7.8 [facility] ID Date Data Source [id number] 07/30/2019 07:37:00 AM EST [facility] ([facility] Name Value Range Interpretation Code Description Data Conchita rce(s) Supporting Document(s) Prostate specific Ag [Mass/volume] in Serum or Plasma 0.35 ng/mL [facility] ([facility]) This assay was performed on the Siemens Dimension EXL using the B- Galactosidase/CPRG methodology and should not be compared interchangeably with other methods. The PSA should not be used alone as a screening test for the presence or absence of malignant disease. ID Date Data Source [id number] 07/30/2019 07:36:00 AM EST [facility] ([facility] Name Value Range Interpretation Code Description Data Conchita rce(s) Supporting Document(s) Cholesterol [Mass/volume] in Serum or Plasma 173 mg/dL 131-200 [facility] Triglyceride [Mass/volume] in Serum or Plasma 252 mg/dL 30-150 [facility] Cholesterol in HDL [Mass/volume] in Serum or Plasma 38 mg/dL 35-60 [facility] ([facility]) Cholesterol in LDL [Mass/volume] in Serum or Plasma by calcu lation 85 CALC 50-159 [facility] ([facility]) ID Date Data Source [id number] 07/30/2019 07:36:00 AM EST [facility] ([facility]) Name Value Range Interpretation Code Description Data Conchita rce(s) Supporting Document(s) Glucose [Mass/volume] in Serum or Plasma 85 mg/dL 74-99 [facility] ([facility]) 100-125 mg/dL PRE-DIABETES/FASTING >126 mg/dL DIABETES/FASTING Urea nitrogen [Mass/volume] in Serum or Plasma 17 mg/dL 7-18 [facility] ([facility]) Creatinine 1.4 mg/dL 0.6-1.3 [facility] Sodium [Moles/volume] in Serum or Plasma 142 meq/L 136-145 [facility] ([facility]) Potassium [Moles/volume] in Serum or Plasma 4.1 meq/L 3.5-5.1 [facility] ([facility]) Chloride [Moles/volume] in Serum or Plasma 103 meq/L 98-107 [facility] ([facility]) Calcium [Mass/volume] in Serum or Plasma 9.0 mg/dL 8.5-10.1 [facility] ([facility]) Carbon dioxide, total [Moles/volume] in Serum or Plasma 30 meq/L 21 -32 [facility] ([facility]) Total Bilirubin 0.7 mg/dL 0.2-1.0 [facility] ([facility]) Alkaline phosphatase isoenzyme [Units/volume] in Serum or Pl asma 62 mg/dL 46-116 [facility] ([facility]) Alanine aminotransferase [Enzymatic activity/volume] in Seru m or Plasma 26 U/L 12-78 [facility] ([facility]) Aspartate aminotransferase [Enzymatic activity/volume] in Serum or Plasma 26 U/L 15-37 [facility] ([facility] ) Proteinase 3 Ab [Units/volume] in Serum 7.8 g/dL 6.4-8.2 [facility] ([facility]) Albumin [Mass/volume] in Serum or Plasma 4.2 g/dL 3.4-5.0 [facility] ([facility]) Glomerular filtration rate/1.73 sq M pre dicted among non-blacks [Volume Rate/Area] in Serum or Plasma by Creatinine-based formula (MDRD) 53 mL/min [facility] A/G Ratio 1.17 CALC 1.00-1.90 [facility] ([facility]) Glomerular filtration rate/1.73 sq M pre dicted among blacks [Volume Rate/Area] in Serum or Plasma by Creatinine-based formula (MDRD) >= 60 mL/min [facility]) <content>CHRONIC KIDNEY DISEASE STAGING PER NKF</content>
<content></content>
<content>STAGE I & II GFR >= 60 NORMAL TO MILDLY DECREASED</content>
<content>STAGE III GFR 30-59 MODERATELY DECREASED</content>
<content>STAGE IV GFR 15-29 SEVERELY DECREASED</content>
<content>STAGE V GFR <15 VERY LITTLE GFR LEFT</content>
<content>ESRD GFR <15 ON FUR SORTER</content>
<content></content> ID Date Data Source [id number] 07/30/2019 07:36:00 AM EST [facility] ([facility]) Name Value Range Interpretation Code Description Data Conchita rce(s) Supporting Document(s) Leukocytes [#/volume] in Blood by Automated count 6.9 x10*3/UL 4.1-10 .9 [facility] Erythrocytes [#/volume] in Blood by Automated count 5.57 x10*6/UL 4.2 0-6.30 [facility] Hemoglobin [Mass/volume] in Blood 16.0 g/dL 12.0-18.0 [facility] MCV 84.6 fL 80.0-97.0 [facility] ([facility]) Hematocrit [Volume Fraction] of Blood by Automated count 47.2 % 3 7.0-51.0 [facility] ([facility]) MCH 28.8 pg 26.0-32.0 [facility] MCHC 34.0 g/dL 31.0-38.0 [facility]) Erythrocyte distribution width [Ratio] by Automated count 12.9 % 11.6-13.7 [facility] ([facility]) Platelets [#/volume] in Blood by Automated count 219 x10*3/UL 140-440 [facility] ([facility]) MPV 8.3 FL 7.8-11.0 [facility] Lymph % 27.4 % 10.0-58.5 [facility] Mid % 7.3 % 1.7-9.3 [facility]) Lymph # 1.9 x10*3/UL 0.6-4.1 [facility] ([facility]) Neut % 65.3 % 37.0-92.0 [facility] Mid # 0.5 x10*3/UL 0.1-0.6 [facility] ([facility]) Neut # 4.5 x10*3/UL 2.0-7.8 [facility] ([facility]) Procedure Vital Signs ID Date Data Source UNK Name Value Range Interpretation Code Description Data Source(s) Body mass index (BMI) [Ratio] 29.3 kg/m2 29.3 k g/m2 [facility] ([facility]) Body weight 201.00 [lb_av] 201.00 [lb_av] MEDEN T ([facility]) Body height 69.5 [in_i] 69.5 [in_i] [facility] ([facility]) 5'9.50" Heart rate 72 /min 72 /min [facility] ([facility]) Diastolic blood pressure 76 mm[Hg] 76 mm[Hg] [facility] ([facility]) Systolic blood pressure 118 mm[Hg] 118 mm[Hg] M EDENT ([facility]) Body mass index (BMI) [Ratio] 30.3 kg/m2 30.3 k g/m2 [facility] ([facility]) Body weight 208.00 [lb_av] 208.00 [lb_av] BROOKLYNN T ([facility]) Body height 69.5 [in_i] 69.5 [in_i] ISA ([facility]) 5'9.50" Heart rate 78 /min 78 /min [facility] ([facility]) Diastolic blood pressure 68 mm[Hg] 68 mm[Hg] ISA ([facility]) Systolic blood pressure 122 mm[Hg] 122 mm[Hg] Javier WHARTON ([facility])
--- NOTE | 2020-09-19 11:28 | REP ---
INDICATION: fall, right elbow COMPARISON: None. TECHNIQUE: Four views right elbow. FINDINGS: Possible avulsion fracture of the coronoid process of ulna. No acute fracture or dislocation is visualized. A joint effusion is noted. Oval calcific density along the each humeral condyle likely represent tendinous calcifications. IMPRESSION: Calcific density adjacent to the coronoid process may represent an avulsion fracture. No other evidence of acute fracture or dislocation. Joint effusion. <Electronically signed by Presley Johnson > 09/19/20 1122
== END 2020-09-19 12:00 | disposition home or self-care (01) ==
LOC: M ED 10:36
DX: S82.391A Other fracture of lower end of right tibia, initial encounter for closed fracture (principal); W18.39XA Other fall on same level, initial encounter; Y92.018 Other place in single-family (private) house as the place of occurrence of the external cause

== ENCOUNTER → 2021-12-01 | Outpatient (CLI) | payer BC | LOC: M LABSMTC 10:14 | PROVIDERS: ATTEND Anesthesiology | DX: Z11.52 Encounter for screening for COVID-19 (principal); Z20.822 Contact with and (suspected) exposure to COVID-19 ==

== ENCOUNTER 2021-12-06 08:08 | Day surgery (SDC) | payer BC ==
[~2021-12-06] VITALS: Ht 177.8 cm; Wt 92.4 kg
[~2021-12-06 08:08] MED LIST: LIDOCAINE 2% 100MG/5ML SDV (FOR ANES.) As Ordered ONE; NS 1,000 ML IV ONE; propofoL 200 MG/20 ML VIAL As Ordered ONE
[2021-12-06 10:04] VITALS: BP 115/72
== END 2021-12-06 10:20 | disposition home or self-care (01) ==
LOC: M OPP 08:08
PROVIDERS: ATTEND Internal Medicine Gastroenterology
DX: Z12.11 Encounter for screening for malignant neoplasm of colon (principal); K63.5 Polyp of colon; K64.8 Other hemorrhoids

== ENCOUNTER → 2022-08-04 | Outpatient (REF) | payer BC ==
[2022-08-05 08:09] LABS: LDL DIRECT 77 mg/dL (0-99)
== END ==
LOC: M LAB REF 12:50
PROVIDERS: ATTEND Internal Medicine
DX: E78.2 Mixed hyperlipidemia (principal)

== ENCOUNTER → 2022-08-10 | Outpatient (CLI) | payer BC | LOC: M WUC 11:19 | PROVIDERS: ATTEND Internal Medicine | DX: R06.02 Shortness of breath (principal) ==

== ENCOUNTER → 2022-10-05 | Outpatient (REF) | payer BC | LOC: M SMT 14:06 | PROVIDERS: ATTEND Urology | DX: Z30.2 Encounter for sterilization (principal) ==

== ENCOUNTER → 2023-02-17 | Outpatient (REF) | payer BC ==
[2023-02-17 12:27] LABS: SEMEN APPEARANCE OPAQUE (OPAQUE); SEMEN VISCOSITY LIQUID (LIQUID); SEMEN VOLUME 3.4 ml (2.0-5.0); SEMEN pH 8.5 (7.0-8.0)
[2023-02-17 12:28] LABS: WBC CONCENTRATION >1 M/ml (<=1 M/ml)
== END ==
LOC: M SMT 11:35
PROVIDERS: ATTEND Urology
DX: Z30.2 Encounter for sterilization (principal)

== ENCOUNTER 2023-11-09 04:42 | Emergency (ER) | payer BC ==
[~2023-11-09] VITALS: Ht 177.8 cm; Wt 93.6 kg
[2023-11-09 05:30] LABS: APPEARANCE, URINE HAZY (CLEAR); BACTERIA, URINE AUTO NEGATIVE (NEGATIVE); BILIRUBIN, URINE AUTO NEGATIVE (NEGATIVE); BLOOD, URINE BLOOD 1+ (NEGATIVE); COLOR, URINE YELLOW (YELLOW); GLUCOSE, URINE (UA) AUTO NEGATIVE (NEGATIVE); KETONE, URINE AUTO NEGATIVE (NEGATIVE); LEUKOCYTE ESTERASE, URINE AUTO NEGATIVE (NEGATIVE); MUCUS, URINE SMALL (NEGATIVE); NITRITE, URINE AUTO NEGATIVE (NEGATIVE); PROTEIN, URINE AUTO NEGATIVE (NEGATIVE); RBC, URINE AUTO 31 /HPF (0-3); SPECIFIC GRAVITY URINE AUTO 1.027 (1.002-1.035); SQUAMOUS EPITHELIAL CELL UR AU 0 /HPF (0-6); UROBILINOGEN, URINE AUTO 0.2 mg/dL (0.0-2.0); WBC, URINE AUTO 1 /HPF (0-3)
[2023-11-09 07:03] LABS: BASO % 0.1 % (0.0-1.0); EOS % 0.3 % (0.0-3.0); HEMATOCRIT 40.2 % (42.0-52.0); HEMOGLOBIN 13.4 g/dl (13.5-17.5); LYMPH # 0.9 10^3/uL (1.5-5.0); LYMPH % 9.4 % (24.0-44.0); MEAN CORPUSCULAR HEMOGLOBIN 27.2 pg (27.0-33.0); MEAN CORPUSCULAR HGB CONC 33.3 g/dl (32.0-36.5); MEAN CORPUSCULAR VOLUME 81.5 fl (80.0-96.0); MONO # 0.7 10^3/uL (0.0-0.8); MONO % 6.7 % (2.0-8.0); NEUTROPHILS # 8.4 10^3/uL (1.5-8.5); PLATELET COUNT, AUTOMATED 269 10^3/uL (150-450); RED BLOOD COUNT 4.93 10^6/uL (4.30-6.10); WHITE BLOOD COUNT 10.1 10^3/uL (4.0-10.0)
[2023-11-09] MEDS ORDERED: SULF1TAB23 PO (07:19)
[2023-11-09] MEDS ORDERED: KETO10TAB PO (07:21)
[2023-11-09 07:22] LABS: BLOOD UREA NITROGEN 20 MG/DL (9-23); CALCIUM LEVEL 9.2 MG/DL (8.5-10.1); CARBON DIOXIDE LEVEL 26 MMOL/L (20-31); CHLORIDE LEVEL 108 MMOL/L (98-107); GLOMERULAR FILTRATION RATE > 60.0 (>56); GLUCOSE, FASTING 102 MG/DL (60-100); POTASSIUM SERUM 4.4 MMOL/L (3.5-5.1); SODIUM LEVEL 141 MMOL/L (136-145)
[2023-11-09 07:55] VITALS: BP 127/77; TEMP 97.1; O2SAT 97
== END 2023-11-09 07:55 | disposition home or self-care (01) ==
LOC: M ED 04:42
DX: N28.89 Other specified disorders of kidney and ureter (principal)

== ENCOUNTER → 2024-04-25 | Outpatient (REF) | payer BC ==
[~2024-04-25] MED LIST changes: +KETO10TAB PO; -LIDOCAINE 2% 100MG/5ML SDV (FOR ANES.) As Ordered ONE; -NS 1,000 ML IV ONE; +SULF1TAB23 PO; -propofoL 200 MG/20 ML VIAL As Ordered ONE
[2024-04-25 12:16] LABS: D-DIMER QUANT 0.4 ug/mL (<0.5); INR 0.99; PARTIAL THROMBOPLASTIN TIME 30.7 SECONDS (24.8-34.2); PROTHROMBIN TIME 12.8 SECONDS (12.5-14.5)
== END ==
LOC: M LAB REF 11:15
PROVIDERS: ATTEND Internal Medicine
DX: I82.401 Acute embolism and thrombosis of unspecified deep veins of right lower extremity (principal); M79.604 Pain in right leg; I83.813 Varicose veins of bilateral lower extremities with pain

== ENCOUNTER → 2024-04-26 | Outpatient (CLI) | payer BC | LOC: M RAD 14:50 | PROVIDERS: ATTEND Internal Medicine | DX: M79.604 Pain in right leg (principal); I82.401 Acute embolism and thrombosis of unspecified deep veins of right lower extremity ==

== ENCOUNTER → 2024-08-21 | Outpatient (REF) | payer BC | LOC: M LAB REF 13:19 | PROVIDERS: ATTEND Internal Medicine | DX: E78.2 Mixed hyperlipidemia (principal) ==

== ENCOUNTER → 2025-01-06 | Outpatient (CLI) | payer BC | LOC: M PLAIMG 14:49 → M PLALAB 14:49 | PROVIDERS: ATTEND Physician Assistant | DX: Z87.442 Personal history of urinary calculi (principal) ==